=== PATIENT | male | born 1965 ===

== ENCOUNTER 2022-04-09 17:37 | Observation (INO) ==
[2022-04-09 18:24] LABS: Basophils # 0.1 10*3/uL (0.0-0.2); Basophils % 0.6 % (0.0-0.8); Eosinophils % 0.5 % (0.00-10.9); Hematocrit 44.1 VOL% (42.0-52.0); Hemoglobin 14.2 GM/DL (14.0-18.0); Immature Granulocytes % 0.6 %; Immature Granulocytes Absolute 0.05 #; Lymphocytes % 12.3 % (21.2-54.2); Mean Corpuscular HGB Conc 32.2 GM/DL (32-36); Mean Corpuscular Volume 93.8 FL (87-102); Mean Platelet Volume 8.6 FL (9.6-12.0); Monocytes # 0.6 10*3/uL (0.11-0.8); Monocytes % 7.1 % (1.7-12.7); Neutrophils % 78.9 % (38.7-73.9); Platelet Count 432 T/CUMM (130-400); Red Cell Distribution Width 13.5 % (9.3-17.3); White Blood Count 8.1 T/CUMM (4-12)
[2022-04-09 18:37] LABS: INR 0.9
[2022-04-09 18:41] LABS: Albumin 3.1 G/DL (3.4-5.0); Bilirubin,Total 0.4 MG/DL (0.20-1.00); Calcium 8.9 MG/DL (8.5-10.1); Osmolality,Calculated 287.5 MOS/KG (273-304); Potassium 3.8 MMOL/L (3.5-5.1); Total Protein 7.4 G/DL (6.4-8.2)
[2022-04-09] MEDS ORDERED: GLUCAGON 1 MG VIAL IM PRN (19:05)
[2022-04-09] MEDS ORDERED: ACETAMINOPHEN 325 MG TABLET PO PRN (19:05)
[2022-04-09] MEDS ORDERED: PROMETHAZINE 25 MG/1 ML VIAL IM PRN (19:05)
[2022-04-09] MEDS ORDERED: CLINDAMYCIN INJ 600 MG/50 ML PREMIX IV ONE (19:05)
[2022-04-09] MEDS ORDERED: ONDANSETRON 4 MG/2 ML VIAL IV PRN (19:05)
[2022-04-09] MEDS ORDERED: DEXTROSE 10% 250 ML BAG IV PRN (19:12)
[2022-04-09] MEDS: LACTATED RINGERS 1,000 ML IV SCH (21:54)
[2022-04-09] MEDS: INSULIN REGULAR 100 UNIT/ML SUBCUT SCH (22:10)
[2022-04-10 05:09] LABS: Basophils # 0.1 10*3/uL (0.0-0.2); Basophils % 0.8 % (0.0-0.8); Eosinophils # 0.1 10*3/uL (0.0-0.87); Hematocrit 39.2 VOL% (42.0-52.0); Hemoglobin 12.7 GM/DL (14.0-18.0); Immature Granulocytes % 0.6 %; Immature Granulocytes Absolute 0.04 #; Lymphocytes # 1.2 10*3/uL (1.4-4.0); Lymphocytes % 16.1 % (21.2-54.2); Mean Corpuscular HGB Conc 32.4 GM/DL (32-36); Mean Corpuscular Volume 92.9 FL (87-102); Mean Platelet Volume 8.7 FL (9.6-12.0); Monocytes # 0.7 10*3/uL (0.11-0.8); Monocytes % 9.1 % (1.7-12.7); Neutrophils % 72.4 % (38.7-73.9); Platelet Count 370 T/CUMM (130-400); Red Blood Count 4.22 MC/CUMM (3.8-5.5); Red Cell Distribution Width 13.7 % (9.3-17.3); White Blood Count 7.2 T/CUMM (4-12)
[2022-04-10 05:27] LABS: Alanine Aminotransferase 21 U/L (16-61); Albumin 2.6 G/DL (3.4-5.0); Alkaline Phosphatase 102 U/L (45-117); Aspartate Amino Transferase 11 U/L (0-37); Bilirubin,Total < 0.39 MG/DL (0.20-1.00); Blood Urea Nitrogen 25 MG/DL (7-18); Calcium 8.5 MG/DL (8.5-10.1); Carbon Dioxide 28 MMOL/L (21-32); Chloride 109 MMOL/L (98-107); Glucose 158 MG/DL (74-106); Osmolality,Calculated 289.1 MOS/KG (273-304); Potassium 3.6 MMOL/L (3.5-5.1); Sodium 142 MMOL/L (136-145); Total Protein 6.3 G/DL (6.4-8.2)
[2022-04-10] MEDS: LACTATED RINGERS 1,000 ML IV SCH (05:46)
[2022-04-10] MEDS: CLINDAMYCIN INJ 600 MG/50 ML PREMIX IV SCH ×3 (05:47→20:24)
[2022-04-10] MEDS: INSULIN REGULAR 100 UNIT/ML SUBCUT SCH ×4 (07:39→20:25)
[2022-04-10] MEDS: PANTOPRAZOLE 40 MG TABLET PO SCH (08:21)
[2022-04-10] MEDS: MORPHINE 2 MG/1 ML SYRINGE IV PRN ×2 (08:23→12:52)
[2022-04-10] MEDS ORDERED: fentaNYL 100 MCG/2 ML VIAL ONE (09:32)
[2022-04-10] MEDS ORDERED: propofoL 200 MG/20 ML VIAL IV ONE (10:41)
[2022-04-10] MEDS ORDERED: SEVOFLURANE 1 UNIT/15 MINUTE INH ONE (10:41)
[2022-04-10] MEDS ORDERED: ONDANSETRON 4 MG/2 ML VIAL ONE (10:41)
[2022-04-10] MEDS ORDERED: ETOMIDATE 40 MG/20 ML VIAL IV ONE (10:41)
[2022-04-10] MEDS ORDERED: LIDOCAINE 2% 5 ML VIAL ONE (10:41)
[2022-04-10] MEDS ORDERED: ONDANSETRON 4 MG/2 ML VIAL IV PRN ×2 (10:59→11:07)
[2022-04-10] MEDS ORDERED: HYDROmorphone 1 MG/1 ML SYRINGE ONE (11:09)
[2022-04-10] MEDS: HYDROmorphone 1 MG/1 ML SYRINGE IV PRN ×2 (11:12→11:23)
[2022-04-10] MEDS ORDERED: MEPERIDINE 25 MG/1 ML VIAL IV PRN (11:27)
[2022-04-10] MEDS ORDERED: oxyCODONE/ACETAMINOPHEN 5-325 MG TABLET PO ONE (13:36)
[2022-04-11] MEDS: CLINDAMYCIN INJ 600 MG/50 ML PREMIX IV SCH ×2 (04:23→11:38)
[2022-04-11] MEDS: INSULIN REGULAR 100 UNIT/ML SUBCUT SCH ×4 (07:28→22:03)
[2022-04-11] MEDS: MORPHINE 2 MG/1 ML SYRINGE IV PRN ×3 (07:29→19:26)
[2022-04-11] MEDS: DAPAGLIFLOZIN 10 MG TABLET PO SCH ×2 (08:07→15:27)
[2022-04-11] MEDS: BACILLUS COAGULANS CAPLET PO SCH (08:07)
[2022-04-11] MEDS: FUROSEMIDE 20 MG TABLET PO SCH (08:07)
[2022-04-11] MEDS: lisinopriL 20 MG TABLET PO SCH (08:08)
[2022-04-11] MEDS: PANTOPRAZOLE 40 MG TABLET PO SCH (08:08)
[2022-04-11] MEDS: LACTATED RINGERS 1,000 ML IV SCH (11:57)
[2022-04-11] MEDS: CIPROFLOXACIN INJ 400 MG/200 ML PREMIX IV SCH (15:25)
[2022-04-11] MEDS: ACETIC ACID 0.25% IRRIGATION 1,000 ML BOTTLE IRRIG SCH (15:25)
[2022-04-12] MEDS: CIPROFLOXACIN INJ 400 MG/200 ML PREMIX IV SCH (02:13)
[2022-04-12] MEDS: BACILLUS COAGULANS CAPLET PO SCH (08:15)
[2022-04-12] MEDS: lisinopriL 20 MG TABLET PO SCH (08:15)
[2022-04-12] MEDS: DAPAGLIFLOZIN 10 MG TABLET PO SCH (08:15)
[2022-04-12] MEDS: FUROSEMIDE 20 MG TABLET PO SCH (08:15)
[2022-04-12] MEDS: PANTOPRAZOLE 40 MG TABLET PO SCH (08:15)
[2022-04-12] MEDS: INSULIN REGULAR 100 UNIT/ML SUBCUT SCH (08:17)
[2022-04-12] MEDS: ACETIC ACID 0.25% IRRIGATION 1,000 ML BOTTLE IRRIG SCH (08:17)
[2022-04-12] MEDS: MORPHINE 2 MG/1 ML SYRINGE IV PRN (09:51)
[2022-04-12 11:40] VITALS: BP 121/78
[2022-04-12] MEDS ORDERED: ATORVASTATIN 40 MG TABLET PO SCH (21:00)
[2022-04-13] MEDS ORDERED: ASPIRIN EC 81 MG TABLET PO SCH (09:00)
== END 2022-04-12 15:00 | disposition home or self-care (01) ==
LOC: EDUNIT# → EDBD → N.EDINP 17:37 → N.ED 17:37 → N.3E 20:36
PROVIDERS: ADMIT Student in an Organized Health Care Education/Training Program; ATTEND Student in an Organized Health Care Education/Training Program